=== PATIENT | male | born 1960 | race Caucasian/White ===

== ENCOUNTER 2019-11-20 15:23 | Emergency (ER) | payer MEDICARE, MEDICAID, SELFPAY ==
[2019-11-20 15:22] VITALS: BP 166/102; PULSE 93; RESP 18; TEMP 36.9; O2SAT 97
--- NOTE | 2019-11-20 15:26 | ED.BACK ---
HPI - Back Pain/Injury General Chief Complaint: Back Pain/Injury Stated Complaint: back pain Time Seen by Provider: 11/20/19 15:26 Source: patient Mode of arrival: EMS Limitations: no limitations History of Present Illness HPI Narrative: Pt is a 59 y/o male who presents to the ED, via EMS, from [facility] with c/o lower back pain. Pt has a H/o L4 fracture and he is supposed to see his surgeon Dr. Malcolm tomorrow. Pt states that he has a constant 5/10 pain since he injured his back, but today it became a 10/10 after he did PT. No fall during physical therapy. No heavy lifting. Patient has been ambulatory with a narrow base, steady gait. He notes that he has band like pattern of pain on his lower back. He denies saddle anesthesia, testicular numbness/pain, leg numbness, or difficulty urinating. He denies any recent falls. Pt has been able to walk with his cane and back brace. No numbness in his feet. MD elicited complaint: back pain Pertinent past history: recent trauma (L4 fracture) Onset (ago): month(s) (3) Timing: progressively worsening (worse today) Pain scale (0-10): 10 Location: lumbar spine Context: other (PT) Associated symptoms: numbness (lower back) Related Data Home Medications Medication Instructions Recorded Confirmed acetaminophen 11/20/19 buspirone 11/20/19 duloxetine 11/20/19 gabapentin 11/20/19 lithium carbonate 11/20/19 quetiapine 11/20/19 Allergies Allergy/AdvReac Type Severity Reaction Status Date / Time No Known Allergies Allergy Verified 11/20/19 15:33 Review of Systems Review of Systems: Narrative: GENITOURINARY: Denies difficulty urinating, denies testicular pain/numbness MUSCULOSKELETAL: Reports lower back pain NEUROLOGIC: Reports tingling sensation in lower back, but denies numbness. Denies leg numbness or saddle anesthesia All systems reviewed & are unremarkable except as noted in HPI and below PMFSH Past Medical History Medical History (Updated 11/20/19 @ 16:56 by Irma Velazquez MD) L4 vertebral fracture Social History Social History (Updated 11/20/19 @ 15:36 by Freddy Singh) Living arrangements: alf Exam Narrative: Exam Narrative: GENERAL: Uncomfortable-appearing, well-nourished, and in no acute distress. HEAD: Normocephalic, atraumatic. EYES: PERRLA and EOMI. ENT: Nares clear, no rhinorrhea or epistaxis. Mucous membranes moist. NECK: Supple. CHEST: Clear to auscultation. No respiratory distress. HEART: Regular rate and rhythm. No murmur heard. Normal peripheral pulses. ABDOMEN: Soft, nontender, nondistended, normal active bowel sounds. : Gluteal squeeze normal. EXTREMITIES: Normal range of motion. No edema. SKIN: Warm, dry, no rash. NEURO: No focal deficits. Alert and oriented X3. BACK: Midline tenderness to L4-L5. DELROY paraspinal lumbar tenderness. Negative straight leg raise test bilaterally. Intact FHL/EHL. Intact distal sensation without deficit. Compartments are soft. Intact sensation to medial and lateral lower extremities. Ambulatory with a narrow based steady gait. Course Course Emergency Course: Patient presented to the emergency department for evaluation of acute on chronic back pain. Patient without any red flag symptoms such as saddle anesthesia, lower extremity numbness, testicular numbness. Patient without fall or injury. No history of cancer. Patient has paraspinal tenderness which makes me believe that this is most likely lumbar strain which has exacerbated his chronic back pain. Patient is scheduled follow-up tomorrow with a spine doctor, and patient is really requiring only pain control at this point. Patient was given oral pain medication and Valium with good improvement in his symptoms. He was able to ambulate and had a steady gait, did not require any assistance. He has a normal repeat neurological exam without deficit that would be concerning for cord compression syndrome. Patient was given a 1 day supply of medicat
[2019-11-20] MEDS: DIAZEPAM 5 MG TABLET PO (15:48)
--- NOTE | 2019-11-20 16:47 | PC.NURSE ---
Pt. ambulated after pain med administration, States pain is a 6/10 but is able to ambulate tolerable.
[2019-11-20] MEDS: LIDOCAINE 5% PATCH 1 PATCH TRANSDERM (17:09)
[2019-11-20 17:17] VITALS: BP 133/84; PULSE 78; RESP 16; O2SAT 98
== END 2019-11-20 17:17 | disposition home or self-care (01) ==
PROVIDERS: Emergency Provider Emergency Medicine
DX: M54.5 Low back pain (principal)
CPT/HCPCS: 99283; A9270

== ENCOUNTER 2021-03-04 13:40 | Outpatient (CLI) | payer MEDICARE, MEDICAID, SELFPAY ==
--- NOTE | ~2021-03-04 | CT_ITS ---
EXAMINATION: CT lumbar spine wo con DATE: 03/04/2021 14:12 INDICATION: Low back pain. Right foot numbness and tingling. TECHNIQUE: Computed tomography (CT) of the lumbar spine was performed without intravenous contrast. A utomated exposure control and iterative reconstruction technique were employed. The dose-length produ ct was 420.63 mGy-cm. COMPARISON: None FINDINGS: There is a 4 mm stone in right kidney. Bone alignment is normal. Vertebral body heights are normal. There is mildly decreased disc height at L4-L5. There are changes of posterior fusion proced ure at L4-L5 with pedicle screws. The following disc levels are specifically discussed: L1-L2: The disc does not extend beyond the endplate margin. There is mild bilateral facet joint osteo arthritis. There is no neural foraminal stenosis. There is no central canal stenosis. L2-L3: The disc is bulging. There is mild bilateral facet joint osteoarthritis. There is mild bilater al neural foraminal stenosis. There is mild central canal stenosis. L3-L4: The disc is bulging. There is mild bilateral facet joint osteoarthritis. There is mild bilater al neural foraminal stenosis. There is mild central canal stenosis. L4-L5: The disc is bulging. There is moderate right and mild left facet joint hypertrophy. There is m oderate right and mild left neural foraminal stenosis. There is mild central canal stenosis with post erior decompression. L5-S1: The disc is bulging. There is moderate right and severe left facet joint osteoarthritis. There is mild bilateral neural foraminal stenosis. There is an old fracture of L5 spinous process with non union. There is mild central canal stenosis. IMPRESSION: 1. Moderate right neural foraminal stenosis at L4-L5. Otherwise mild lumbar spondylosis. 2. Posterior fusion procedure at L4-L5. Reviewed, dictated and finalized at location A. IMPRESSION: 1. Moderate right neural foraminal stenosis at L4-L5. Otherwise mild lumbar spo ndylosis. 2. Posterior fusion procedure at L4-L5.
== END 2021-03-04 13:41 | disposition home or self-care (01) ==
PROVIDERS: PCP Internal Medicine; Visit Provider Internal Medicine
DX: M47.896 Other spondylosis, lumbar region (principal); Z98.1 Arthrodesis status
CPT/HCPCS: 72131

== ENCOUNTER 2021-03-09 12:11 | Emergency (ER) | payer MEDICARE, MEDICAID, SELFPAY ==
--- NOTE | ~2021-03-09 | US_ITS ---
EXAMINATION: US venous doppler LE RT DATE: 03/09/2021 12:47 INDICATION: Right lower limb pain and swelling TECHNIQUE: Grayscale ultrasound images without and with compression and Doppler ultrasound images of the right lower extremity veins were obtained. COMPARISON: None. FINDINGS: The visualized portions of right common femoral vein, profunda (deep) femoral vein, femoral vein, pop liteal vein, peroneal trunk, posterior tibial veins, peroneal veins, gastrocnemius vein and greater s aphenous vein outflow are patent. IMPRESSION: 1. No deep venous thrombosis in the right lower limb. Reviewed, dictated and finalized at location A.
--- NOTE | ~2021-03-09 | XR_ITS ---
EXAMINATION: XR foot RT min 3V DATE: 03/09/2021 13:56 INDICATION: Right foot swelling. TECHNIQUE: 4 views of right foot were obtained. COMPARISON: None. FINDINGS: Bone alignment is normal. No fracture. There is mild osteoarthritis of first metatarsophala ngeal joint and some of the interphalangeal joints. IMPRESSION: 1. Mild polyarticular osteoarthritis. Reviewed, dictated and finalized at location B.
[2021-03-09 12:14] VITALS: BP 142/97; PULSE 91; RESP 16; TEMP 37.1; O2SAT 99
--- NOTE | 2021-03-09 13:38 | PC.NURSE ---
Addendum entered by Dorie Quinonez RN 03/09/21 13:41: Reports numbness and tingling, denies hx DM Original Note: Arrives via WC, x2 weeks R foot redness and swelling, difficulty weight bearing. Denies falls or trauma, denies hx blood clots. +pedal pulse assessed with doppler, <2sec cap refill, no open wounds or deformities. No calf tenderness, no resp distress. Afebrile
[2021-03-09 14:17] LABS: Basophils Percent Auto 0.5 % (0.2-1.2); Eosinophils Absolute Auto 0.1 K/mm3 (0-0.3); Eosinophils Percent Auto 2.4 % (0-4.4); Hematocrit 40.2 % (42.0-52.0); Immature Granulocyte Absolute 0.03 K/mm3 (0.00-0.031); Immature Granulocyte Percent A 0.5 % (0-0.5); Lymphocytes Absolute Auto 1.36 K/mm3 (0.9-3.2); Lymphocytes Percent Auto 23.3 % (18.3-44.2); Mean Corpuscular HGB Conc 32.3 g/dl (32-36); Mean Corpuscular Volume 95.7 fl (80-100); Mean Platelet Volume 9.9 fl (7.4-10.4); Monocytes Absolute Auto 0.5 K/mm3 (0.1-0.6); Monocytes Percent Auto 7.9 % (2.6-8.5); Neutrophils Absolute Auto 3.8 K/mm3 (1.3-6.7); Neutrophils Percent Auto 65.4 % (45.5-73.1); Platelet Count Result 222 k/mm3 (150-375); Red Cell Distribution Width 13.9 % (11.5-14.5); White Blood Count 5.8 K/mm3 (4.5-10.0)
[2021-03-09] MEDS: HYDROcodone/acetaminophen (*CRX) 10-325 MG TABLET 1 TAB PO (14:23)
[2021-03-09 14:28] LABS: Anion Gap 0 mmol/L (8-16); Blood Urea Nitrogen 14 mg/dL (9-20); Calcium 9.4 mg/dL (8.4-10.2); Carbon Dioxide 30 mmol/L (22-30); Chloride 106 mmol/L (98-107); Estimated CRCL calculation 74 ml/min; Estimated Glomerular Filt Rate > 60; Glucose 102 mg/dL (75-110); Potassium 3.9 mmol/L (3.4-5.0); Sodium 136 mmol/L (137-145); Uric Acid 4.4 mg/dL (3.5-8.5)
--- NOTE | 2021-03-09 14:54 | ED.LOWEXIN ---
HPI - Extremity Injury (Lower) General Chief Complaint: Extremity Injury, Lower Stated Complaint: right foot pain Time Seen by Provider: 03/09/21 13:39 Source: RN notes reviewed History of Present Illness HPI Narrative: Patient presents to emergency department from home for right foot pain and swelling. States symptoms began approximately 10 days ago. States that the right foot has been swollen with tenderness to palpation he states that even just a slight touch of his sheet is painful to the foot he denies any known trauma or injury he denies any fevers or chills ankle pain or knee pain or any other symptoms states he is on hydrocodone's at home which he has been taking for pain Related Data Home Medications Medication Instructions Recorded Confirmed acetaminophen 11/20/19 buspirone 11/20/19 duloxetine 11/20/19 gabapentin 11/20/19 lithium carbonate 11/20/19 quetiapine 11/20/19 Allergies Allergy/AdvReac Type Severity Reaction Status Date / Time No Known Allergies Allergy Verified 11/20/19 15:33 Review of Systems Review of Systems: Narrative: Gen.: Denies fevers or chills Musculoskeletal: See HPI Neuro: Denies numbness, tingling, weakness Skin: Denies rash Endo: Denies DM PMFSH Past Medical History Medical History L4 vertebral fracture Social History Social History (Updated 03/09/21 @ 14:54 by Charles Mojica DO) Smoking status: Never smoker Exam Narrative: Exam Narrative: APPEARANCE: No acute distress, nontoxic, resting in bed Eyes: EOMI HEENT: Normocephalic, atraumatic, RESPIRATORY: No respiratory distress MUSCULOSKELETAl: The right foot is diffusely tender to palpation over the dorsal aspect with swelling present there is no overlying erythema the radial pulse is 2+ with cap refill less than 3 seconds in all 5 digits there is no tenderness of the ankle full range of motion neurovascular intact NEURO: Awake and alert. Following commands, speech normal, no focal deficits SKIN:: Warm, dry. Normal Color no rash or lesions Course Course Emergency Course: Discussed with patient results of workup and diagnosis. Discussed need for follow-up with primary care, proper use of medication, and reasons to return to the emergency department. Patient understands and agrees to current treatment plan Vital Signs Vital signs: Vital Signs Temperature 98.7 F 03/09/21 12:14 Pulse Rate 91 03/09/21 12:14 Respiratory Rate 16 03/09/21 12:14 Blood Pressure 142/97 H 03/09/21 12:14 Pulse Oximetry 99 03/09/21 12:14 Temperature 98.7 F 03/09/21 12:14 Pulse Rate 91 03/09/21 12:14 Respiratory Rate 16 03/09/21 12:14 Blood Pressure 142/97 H 03/09/21 12:14 Pulse Oximetry 99 03/09/21 12:14 MDM - Extremity Injury (Lower) MDM Narrative Medical decision making narrative: Patient?s injury is consistent with muscular skeletal etiology. No signs of neurologic or vascular compromise to exam. Compartments are soft without signs of compartment syndrome. Pain is consistent with exam and injury. With the patient swelling I do suspect gout component will place on NSAIDs and steroids Lab Data Result diagrams: 03/09/21 14:09 03/09/21 14:09 Labs: Lab Results 03/09/21 03/09/21 Range/Units 14:09 14:09 WBC 5.8 (4.5-10.0) K/mm3 RBC 4.20 L (4.6-6.20) M/mm3 Hgb 13.0 L (14.0-18.0) g/dL Hct 40.2 L (42.0-52.0) % MCV 95.7 (80-100) fl MCH 31.0 (26-34) pg MCHC 32.3 (32-36) g/dl RDW 13.9 (11.5-14.5) % Plt Count 222 (150-375) k/mm3 MPV 9.9 (7.4-10.4) fl Immature Gran % (Auto) 0.5 (0-0.5) % Neut % (Auto) 65.4 (45.5-73.1) % Lymph % (Auto) 23.3 (18.3-44.2) % [place] % (Auto) 7.9 (2.6-8.5) % Eos % (Auto) 2.4 (0-4.4) % Baso % (Auto) 0.5 (0.2-1.2) % Lymph # (Auto) 1.36 (0.9-3.2) K/mm3 [place] # (Auto) 0.5 (0.1-0.6) K/mm3 Eos # (Auto) 0.1 (0-0.3)
[2021-03-09] MEDS: predniSONE 20 MG TABLET 60 MG PO (15:04)
[2021-03-09] MEDS: IBUPROFEN 600 MG TABLET PO (15:04)
[2021-03-09 15:13] VITALS: BP 140/84; PULSE 65; RESP 18; O2SAT 100
== END 2021-03-09 15:17 | disposition home or self-care (01) ==
PROVIDERS: Emergency Provider Emergency Medicine; PCP Family Medicine
DX: M10.9 Gout, unspecified (principal); M19.071 Primary osteoarthritis, right ankle and foot
CPT/HCPCS: 36415; 73630; 80048; 84550; 85025; 93971; 99284; A9270; J7512

== ENCOUNTER 2021-04-16 08:36 | Outpatient (CLI) | payer MEDICARE, MEDICAID, SELFPAY ==
[2021-04-16 10:19] LABS: Uric Acid 3.9 mg/dL (3.5-8.5)
== END 2021-04-16 08:37 | disposition home or self-care (01) ==
PROVIDERS: PCP Family Medicine; Visit Provider Podiatrist Foot & Ankle Surgery
DX: M10.9 Gout, unspecified (principal)
CPT/HCPCS: 36415; 84550